=== PATIENT | male | born 1960 | race African-American/Black ===

== ENCOUNTER 2022-08-14 09:26 | Emergency (ER) | payer MEDICAID ==
[~2022-08-14] VITALS: Ht 182.9 cm; Wt 91.0 kg
[2022-08-14 09:32] VITALS: BP 131/82
== END 2022-08-14 09:56 | disposition left against medical advice (07) ==
LOC: ER 09:50
DX: R21 Rash and other nonspecific skin eruption (principal)
CPT/HCPCS: 99283